=== PATIENT | female | born 1995 | race Two or more races ===

== ENCOUNTER 2023-05-27 01:31 | Emergency (ER) | payer MEDICAID ==
[~2023-05-27] VITALS: Ht 154.9 cm; Wt 99.8 kg
[2023-05-27 02:12] VITALS: BP 101/74; TEMP 98.8
[2023-05-27] MEDS ORDERED: ALBUTEROL FS 2.5 MG/0.5 ML VIAL.NEB NEB ONE (02:30)
[2023-05-27] MEDS ORDERED: IBUPROFEN 400 MG TABLET PO ONE (02:30)
[2023-05-27] MEDS ORDERED: ALBUTEROL FS 2.5 MG/0.5 ML VIAL.NEB ONE (02:39)
[2023-05-27 02:48] VITALS: O2SAT 97
[2023-05-27 03:00] VITALS: O2SAT 100
[2023-05-27] MEDS ORDERED: ALBU8.5H8 INH (03:50)
[2023-05-27] MEDS ORDERED: IBUPROFEN 400 MG TABLET ONE (03:56)
[2023-05-27 03:59] VITALS: O2SAT 99
== END 2023-05-27 04:12 | disposition home or self-care (01) ==
LOC: EDBD 01:33 → ER 01:33
DX: J98.01 Acute bronchospasm (principal); R07.89 Other chest pain
CPT/HCPCS: 71045-TC